=== PATIENT | male | born 1995 | race Caucasian/White ===

== ENCOUNTER 2021-06-07 20:28 | Inpatient (IN) | payer SELFPAY, OTHER ==
[2021-06-07 20:50] VITALS: BMI 21.2
[2021-06-07 21:58] VITALS: BP 118/68; PULSE 82; RESP 16; TEMP 36.6; O2SAT 100
[2021-06-07 22:04] VITALS: BP 116/68; PULSE 80; RESP 16; TEMP 36.6; O2SAT 100
[2021-06-07] MEDS: Senna/Docusate Sodium 1 Tablet 2 TABLET PO (22:23)
[2021-06-07] MEDS: Enoxaparin 30 MG/0.3 ML Syringe SC (22:23)
[2021-06-07] MEDS: oxyCODONE 5 MG Tablet PO (22:24)
[2021-06-07] MEDS: QUEtiapine 25 MG Tablet PO (22:24)
[2021-06-07 22:28] VITALS: PULSE 87; RESP 16; O2SAT 100
--- NOTE | 2021-06-08 04:22 | NURSING ---
Pt impulsive at times and mother, Ashli, staying at bedside. Mother beneficial in alerting staff as pt can be confused at times. Requires help with toileting. Pt resting in bed. VSS.
[2021-06-08 05:57] LABS: Absolute Lymphocyte Count 1.39 X10^3/uL (0.83-4.51); Absolute Neutrophil Count 4.1 X10^3/uL (2.0-7.7); Basophil# 0.03 X10^3/uL; Basophil% 0.5 % (0-1); Eosinophil# 0.21 X10^3/uL; Eosinophils% 3.3 % (0-5); Hematocrit 31.5 % (40-54); Lymphocyte # 1.39 X10^3/ul (0.83-4.51); Lymphocyte % 21.9 % (19-41); Mean Corp Hgb Conc 31.7 g/dL (32-36); Mean Corpuscular Hgb 25.1 pg (27.0-32.0); Mean Corpuscular Volume 79.1 fL (80-94); Mean Platelet Vol. 8.3 fl (6.2-12.0); Monocyte# 0.49 X10^3/uL; Monocyte% 7.7 % (0-10); NRBC Flagged by Analyzer 0 % (0-5); Neutrophil # 4.13 X10^3/uL (2.7-7.7); Neutrophil % 64.9 % (47-70); Platelet Count 723 K/mm3 (150-450); RBC Distribution Width CV 14.8 % (11.6-14.6); RBC Distribution Width SD 41.2 fl (35.1-43.9); Red Blood Count 3.98 M/mm3 (4.6-6.2); White Blood Count 6.4 K/mm3 (4.4-11.0)
[2021-06-08] MEDS: QUEtiapine 25 MG Tablet PO ×2 (06:37→21:33)
[2021-06-08 06:45] LABS: ALB/GLOB Ratio 0.7 RATIO (0.9-2.4); AST(SGOT) 57 U/L (15-37); Alanine Aminotransfer ALT/SGPT 223 U/L (16-61); Albumin, Serum 3.2 g/dL (3.2-5.0); Alkaline Phosphatase 139 U/L (45-117); Anion Gap 6 (5-15); BUN 20 mg/dL (7-18); BUN/Creat Ratio 27.2 RATIO (10-20); Calcium,Total 9.6 mg/dL (8.5-10.1); Chloride 102 mmol/L (98-107); Creatinine, Serum 0.73 mg/dL (0.70-1.30); EST Glomerular Filtration Rate 140 mL/min (>60); Est Glom Filt Rate - Afr Amer 169 mL/min (>60); Estimated Creatinine Clearance 162.56 ml/min; Globulin 4.9 g/dL (2.2-4.2); Glucose 114 mg/dL (74-106); Magnesium 2.2 mg/dL (1.6-2.6); Phosphorus 4.8 mg/dL (2.5-4.9); Potassium 4.5 mmol/L (3.5-5.1); Protein, Total 8.1 g/dL (6.4-8.2); Sodium Level 135 mmol/L (136-145)
[2021-06-08] MEDS: Acetaminophen 325 MG Tablet 975 MG PO (07:11)
[2021-06-08 07:44] VITALS: BP 106/60; PULSE 80; RESP 16; TEMP 36.9; O2SAT 97
[2021-06-08] MEDS: Multivitamins,Therapeutic Tablet 1 TABLET PO (08:49)
[2021-06-08] MEDS: Enoxaparin 30 MG/0.3 ML Syringe SC (08:49)
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
--- NOTE | 2021-06-08 16:07 | NURSING ---
pt impulsive and quick getting OOB on own several times today. Redirects easily. Mother sitting with pt.
[2021-06-08] MEDS: oxyCODONE 5 MG Tablet PO (18:25)
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
[2021-06-08 19:09] VITALS: BP 109/71; PULSE 78; RESP 16; TEMP 36.6; O2SAT 99
[2021-06-08 19:36] VITALS: O2SAT 99
[2021-06-08 20:42] LABS: Ferritin 217 ng/mL (26-388); Iron 44 ug/dL (65-175); Iron Binding Capacity,Total 353 ug/dL (250-450); PERCENT IRON SATURATION 12.5 % (15.0-55.0)
[2021-06-08] MEDS: Menthol/Lanolin/Calamine/Znox 113 GM Tube 1 APPLIC TOPICAL (21:32)
[2021-06-08 22:00] VITALS: PULSE 82; RESP 16; O2SAT 98
[2021-06-09] MEDS: Enoxaparin 40 MG/0.4 ML Syringe SC (06:24)
[2021-06-09 07:23] VITALS: BP 110/69; PULSE 84; RESP 16; TEMP 37.1; O2SAT 97
[2021-06-09] MEDS: Multivitamins,Therapeutic Tablet 1 TABLET PO (09:06)
[2021-06-09] MEDS: QUEtiapine 25 MG Tablet PO ×2 (09:06→19:58)
[2021-06-09] MEDS: Propranolol LA 60 MG Capsule PO (09:06)
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
[2021-06-09] MEDS: oxyCODONE 5 MG Tablet PO (19:53)
[2021-06-09] MEDS: Menthol/Lanolin/Calamine/Znox 113 GM Tube 1 APPLIC TOPICAL (20:08)
[2021-06-09 20:12] VITALS: BP 106/60; PULSE 73; RESP 16; TEMP 36.9; O2SAT 98
[2021-06-09 22:00] VITALS: PULSE 78; RESP 16; O2SAT 97
--- NOTE | 2021-06-09 22:05 | NURSING ---
Pt resting quietly in bed with father at bedside. Pt much more relaxed than previous night and thus far, cooperative this shift.
[2021-06-10] MEDS: Enoxaparin 40 MG/0.4 ML Syringe SC (05:33)
[2021-06-10 07:34] VITALS: BP 110/64; PULSE 76; RESP 16; TEMP 36.7; O2SAT 100
[2021-06-10 07:48] VITALS: O2SAT 100
[2021-06-10] MEDS: QUEtiapine 25 MG Tablet PO ×2 (08:35→21:11)
[2021-06-10] MEDS: Multivitamins,Therapeutic Tablet 1 TABLET PO (08:35)
[2021-06-10] MEDS: Propranolol LA 60 MG Capsule PO (08:35)
[2021-06-10] MEDS: Menthol/Lanolin/Calamine/Znox 113 GM Tube 1 APPLIC TOPICAL ×2 (08:36→21:11)
--- NOTE | 2021-06-10 10:59 | PN_ITS ---
Progress Note Slim was seen on team rounds today. His father Tommy was present in the room and his Karma participated by phone. Afebrile VSS Maintaining appropriate oxygen saturation on RA Oral intake is good Discussed with nursing - no problems that need addressed. He is impulsive but, having the family in the room helps a lot to redirect him and they plan on continuing to have a family member stay with him overnight. Reviewed the PT/OT/ST notes Medication list reviewed. He seems to be more alert today with changing the Propanolol to long acting. Slept well last night. He seemed a little alarmed to have the TEAM come into his room......may be a little overwhelmed. He is redirectable. He denies pain today and tells me he feels OK. Physical Exam Const alert Constitutional Narrative: more alert than at admission. Cooperative. No a ggression. Had some anxiety when the whole TEAM was in the room. He is able to tell me the name of his and son and also his mother and father today. Thought process seems more organized. General Appearance: cooperative, well kempt and well developed Eyes PERRL, EOMs intact bilaterally and normal visual palacios by confrontation Neck full ROM, No nuchal rigidity, no lymphadenopathy and supple Chest Chest: symmetrical chest wall rise Resp normal respiratory effort, no retractions, no use of accessory muscles and clear to auscultation bilaterally Effort and Inspection: able to speak in complete sentences Cardio regular rate, regular rhythm, S1 normal heart sound, S2 normal heart sound, no murmurs, no rub and no gallops GI normal to inspection, nondistended, normoactive bowel sounds, soft to palpation and non-tender Extremity normal capillary refill, no calf tenderness and no pedal edema Peripheral Pulses: Yes pulses 2+ throughout Skin Skin Narrative: incision is intact without erythema or purulent DC General Skin Exam: no breakdown Neuro CN's II-XII intact bilaterally and moves all extremities Neuro Narrative: weaker on the R side than the left but, has generalized weakness. no ataxia. Assessment & Plan Assessment/Plan (1) Microcytic anemia: (2) Iron deficiency: (3) Loose stools: (4) Status post craniectomy: (5) Traumatic brain injury: PLAN: Continue the current medication regimen. Continue therapy Family is agreeable to home therapy when he is ready and can stay safe at home. He has a very supportive family. continue the iron supplement need to determine at some point why he is iron deficient - celiac antibody is pending. Visit Charges Inpatient E&M: 88127 Subs Hosp L2
[2021-06-10] MEDS: Ferrous Sulfate 325 MG Tablet PO (13:04)
--- NOTE | 2021-06-10 15:36 | CASEMGMT ---
Social Work IDT met with patient, father and via conference call for Team meeting. Discussed patient's progress in PT/OT/ST and nursing. [facility] Liaison attended as well. SW to collaborate with [facility] Liaison for ongoing approval for continued stay on RU through Doppelganger and DC needs. Currently, Doppelganger approved through 06/21 and will provide update at that time. Father stated their preference at DC is to use [facility], and he confirmed they do have ST. The goal is for pt to return home with . However, pt currently has a 4 week old son, thus his will be unable to care extensively for pt at home. Parents and other family intend to assist. The goal is for pt to be closer to baseline at time of DC. Will ReTeam. SW to continue to follow for support and DC planning. Celine Dorman ,EMELIA HOLDERW
--- NOTE | 2021-06-10 17:17 | NURSING ---
46 ramón removed from L side of head today per surgeon's office. no steri strips needed- well approximated. pt tolerated procedure well, denies pain or discomfort. call light within reach and PA's on functioning. father at bedside. pt and father deny further needs.
[2021-06-10 19:04] VITALS: BP 101/60; PULSE 75; RESP 18; TEMP 37.1; O2SAT 96
[2021-06-10] MEDS: Acetaminophen 325 MG Tablet 975 MG PO (21:10)
[2021-06-11] MEDS: Enoxaparin 40 MG/0.4 ML Syringe SC (06:40)
[2021-06-11] MEDS: QUEtiapine 25 MG Tablet PO ×2 (07:34→21:59)
[2021-06-11] MEDS: Acetaminophen 325 MG Tablet 975 MG PO (07:34)
[2021-06-11] MEDS: Propranolol LA 60 MG Capsule PO (07:34)
[2021-06-11] MEDS: Multivitamins,Therapeutic Tablet 1 TABLET PO (07:34)
[2021-06-11 07:41] VITALS: BP 106/61; PULSE 59; RESP 18; TEMP 36.9; O2SAT 100
[2021-06-11] MEDS: Menthol/Lanolin/Calamine/Znox 113 GM Tube 1 APPLIC TOPICAL ×2 (11:07→22:02)
[2021-06-11] MEDS: Ferrous Sulfate 325 MG Tablet PO (11:07)
[2021-06-11 16:07] LABS: t-Transglutaminase IgA <2 U/mL (0-3)
[2021-06-11 19:45] VITALS: BP 123/63; PULSE 62; RESP 14; TEMP 36.7; O2SAT 98
[2021-06-12] MEDS: Enoxaparin 40 MG/0.4 ML Syringe SC (06:47)
[2021-06-12] MEDS: QUEtiapine 25 MG Tablet PO ×2 (07:36→20:59)
[2021-06-12] MEDS: Propranolol LA 60 MG Capsule PO (07:36)
[2021-06-12] MEDS: Multivitamins,Therapeutic Tablet 1 TABLET PO (07:36)
[2021-06-12] MEDS: Acetaminophen 325 MG Tablet 975 MG PO ×2 (07:41→20:59)
[2021-06-12 09:58] VITALS: BP 146/70; PULSE 80; RESP 18; TEMP 36.6; O2SAT 96
[2021-06-12] MEDS: Ferrous Sulfate 325 MG Tablet PO (11:52)
[2021-06-12 19:33] VITALS: BP 105/55; PULSE 73; RESP 18; TEMP 37.2; O2SAT 98
[2021-06-13] MEDS: Enoxaparin 40 MG/0.4 ML Syringe SC (06:59)
[2021-06-13 07:58] VITALS: BP 106/56; PULSE 64; RESP 16; TEMP 36.9; O2SAT 98
[2021-06-13] MEDS: QUEtiapine 25 MG Tablet PO ×2 (08:04→21:15)
[2021-06-13] MEDS: Multivitamins,Therapeutic Tablet 1 TABLET PO (08:04)
[2021-06-13] MEDS: Propranolol LA 60 MG Capsule PO (08:05)
[2021-06-13] MEDS: Ferrous Sulfate 325 MG Tablet PO (11:49)
[2021-06-13 19:46] VITALS: BP 114/62; PULSE 58; RESP 14; TEMP 36.8
[2021-06-13] MEDS: Acetaminophen 325 MG Tablet 975 MG PO (21:15)
[2021-06-13] MEDS: Menthol/Lanolin/Calamine/Znox 113 GM Tube 1 APPLIC TOPICAL (21:17)
[2021-06-14] MEDS: Enoxaparin 40 MG/0.4 ML Syringe SC (06:08)
[2021-06-14 08:23] VITALS: BP 102/55; PULSE 65; RESP 16; TEMP 36.9; O2SAT 97
[2021-06-14] MEDS: Propranolol LA 60 MG Capsule PO (08:43)
[2021-06-14] MEDS: QUEtiapine 25 MG Tablet PO ×2 (08:43→20:23)
[2021-06-14] MEDS: Multivitamins,Therapeutic Tablet 1 TABLET PO (08:43)
[2021-06-14] MEDS: Ferrous Sulfate 325 MG Tablet PO (12:06)
--- NOTE | 2021-06-14 12:24 | PCM.PROGNOTE ---
Subjective Subjective Afebrile VSS Maintaining appropriate oxygen saturation on RA Oral intake is OK, I encouraged him to increase his fluid intake to help with the CHOI and the lightheadedness. Discussed with nursing - no problems that need addressed Reviewed the PT/OT/ST notes Medication list reviewed. Stool is negative for fecal leukocytes. Stool is Hemoccult positive. He is not currently having diarrhea. He does have frequent loose stools at home. He denies CHOI and also denies lightheadedness at this time. No calf pain and no nausea or abdominal pain. Objective Data Objective Data Vital Signs: Vital Signs Temp Pulse Resp BP Pulse Ox 98.4 F 65 16 102/55 L 97 06/14/21 08:23 06/14/21 08:23 06/14/21 08:23 06/14/21 08:23 06/14/21 08:23 Oxygen Delivery Method Room Air Weight: 141 lb 12.116 oz Body Mass Index (BMI) 21.2 Intake & Output: Intake and Output for Last 24 Hours 06/12/21 06/13/21 06/14/21 23:59 23:59 23:59 Intake Total 480 / 480 300 / 300 Balance 480 / 480 300 / 300 Lab / Micro Data Result Diagrams: 06/15/21 05:26 06/15/21 05:26 Micro: Microbiology 06/10/21 19:40 Stool Stool Lactoferrin - Final 06/10/21 19:40 Stool Stool Occult Blood (KALIA) - Final Occult Blood Positive 06/09/21 01:15 Stool C. difficile DNA Amplification - Final 06/09/21 01:15 Stool Enteric Bacteriology - Final Physical Exam Const alert, oriented x3 and no apparent distress General Appearance: cooperative and well developed Eyes EOMs intact bilaterally, conjunctivae normal and no scleral icterus Resp normal air movement and clear to auscultation bilaterally Effort and Inspection: able to speak in complete sentences Cardio regular rate, regular rhythm, S1 normal heart sound, S2 normal heart sound, no murmurs, no rub and no gallops GI normal to inspection, nondistended, normoactive bowel sounds, soft to palpation and non-tender Extremity no calf tenderness and no pedal edema Skin Wound Narrative: The incision remains intact with no erythema, purulent discharge or dehiscence. Neuro moves all extremities Neuro Narrative: less coordinated on the R side. More steady with ambulation. He is answering questions appropriately. No tremors. No ataxia. Assessment & Plan Assessment/Plan (1) Iron deficiency: (2) Status post craniectomy: (3) Thrombocytosis: (4) Skull fractures: (5) Subarachnoid hemorrhage: (6) Subdural hematoma: (7) Traumatic brain injury: PLAN: 1. check a repeat CMP and an CBC in the AM. 2. Would refer to GI post DC to be evaluated for chronic heme + stool and chronic loose stools with iron deficiency. 3. I explained to Slim once again that the bone flap will likely not be replaced for another 3 months and until then he must wear the helmet at all times, unless he is in bed. I also explained that he will not be allowed to operate heavy equipment or saws due to poor safety awareness and also due to poor coordination of the R side. 4. We talked about why it is important to continue therapy and how statistically the recovery within the first 6 months after the injury is the most rapid and is a good predictor of how functional he will be going forward. Charges/Coding Visit Charges Inpatient E&M: 59422 Subs Hosp L2
[2021-06-14 19:29] VITALS: BP 112/78; PULSE 66; RESP 16; TEMP 36.7; O2SAT 99
[2021-06-14] MEDS: Menthol/Lanolin/Calamine/Znox 113 GM Tube 1 APPLIC TOPICAL (20:28)
[2021-06-14 22:00] VITALS: PULSE 73; RESP 16
[2021-06-15 05:33] LABS: Hematocrit 33.7 % (40-54); Hemoglobin 10.7 g/dL (13.0-16.5); Mean Corp Hgb Conc 31.8 g/dL (32-36); Mean Corpuscular Volume 81.8 fL (80-94); Mean Platelet Vol. 8.5 fl (6.2-12.0); Platelet Count 380 K/mm3 (150-450); RBC Distribution Width CV 15.2 % (11.6-14.6); RBC Distribution Width SD 44.9 fl (35.1-43.9); Red Blood Count 4.12 M/mm3 (4.6-6.2); White Blood Count 3.5 K/mm3 (4.4-11.0)
[2021-06-15] MEDS: Enoxaparin 40 MG/0.4 ML Syringe SC (05:47)
[2021-06-15 05:59] LABS: ALB/GLOB Ratio 0.9 RATIO (0.9-2.4); AST(SGOT) 35 U/L (15-37); Alanine Aminotransfer ALT/SGPT 92 U/L (16-61); Albumin, Serum 3.5 g/dL (3.2-5.0); Alkaline Phosphatase 97 U/L (45-117); Anion Gap 2 (5-15); BUN 23 mg/dL (7-18); BUN/Creat Ratio 29.8 RATIO (10-20); Calcium,Total 9.3 mg/dL (8.5-10.1); Chloride 102 mmol/L (98-107); Creatinine, Serum 0.77 mg/dL (0.70-1.30); EST Glomerular Filtration Rate 132 mL/min (>60); Est Glom Filt Rate - Afr Amer 160 mL/min (>60); Globulin 4.1 g/dL (2.2-4.2); Glucose 101 mg/dL (74-106); Potassium 4.7 mmol/L (3.5-5.1); Protein, Total 7.6 g/dL (6.4-8.2); Sodium Level 137 mmol/L (136-145)
[2021-06-15 07:47] VITALS: BP 106/63; PULSE 66; RESP 16; TEMP 36.6; O2SAT 98
[2021-06-15] MEDS: Propranolol LA 60 MG Capsule PO (08:56)
[2021-06-15] MEDS: Multivitamins,Therapeutic Tablet 1 TABLET PO (08:56)
[2021-06-15] MEDS: Menthol/Lanolin/Calamine/Znox 113 GM Tube 1 APPLIC TOPICAL ×2 (08:57→20:25)
[2021-06-15] MEDS: QUEtiapine 25 MG Tablet PO ×2 (08:57→20:24)
[2021-06-15] MEDS: Ferrous Sulfate 325 MG Tablet PO (12:04)
--- NOTE | 2021-06-15 14:54 | PCM.PN.BLA ---
Progress Note Afebrile VSS Maintaining appropriate oxygen saturation on RA Oral intake is good.......I instructed him to try and increase fluid intake to help with CHOI and lightheadedness. Discussed with nursing - no problems that need addressed Reviewed the PT/OT/ST notes - he was able to write out checks today with OT and made no mistakes. He is ambulating without the walker now. Medication list reviewed. Has not needed any Oxycodone since 06/09. He had a CHOI and some lightheadedness when they came to draw his blood this AM and I think he had a little vasovagal spell. Sx resolved quickly. He denies nausea, CHOI, lightheadedness, pain at the present time. He is very alert and he is oriented to person, place, month and year. He is making appropriate conversation. He wants to go home tonight. I explained that I do not think that is in his best interest at this time and I feel he would benefit from additional therapy. Lungs are CTA with excellent air exchange HRRR Abd is soft, NT and ND with normal BS's No peripheral edema and no calf tenderness. Impressions 1. traumatic brain injury 2. cognitive dysfunction. 3. S/P craniectomy 4. iron deficiency - etiology undetermined Continue the iron supplement 5. Continue therapy Visit Charges Inpatient E&M: 13604 Subs Hosp L2
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
[2021-06-15 19:08] VITALS: BP 101/56; PULSE 67; RESP 16; TEMP 36.6; O2SAT 98
[2021-06-15 22:00] VITALS: PULSE 68; RESP 16
[2021-06-16] MEDS: Enoxaparin 40 MG/0.4 ML Syringe SC (06:29)
[2021-06-16 07:03] VITALS: BP 103/57; PULSE 75; RESP 16; TEMP 36.8; O2SAT 98
[2021-06-16] MEDS: Multivitamins,Therapeutic Tablet 1 TABLET PO (07:56)
[2021-06-16] MEDS: Propranolol LA 60 MG Capsule PO (07:57)
[2021-06-16] MEDS: QUEtiapine 25 MG Tablet PO ×2 (07:57→19:53)
[2021-06-16] MEDS: Ferrous Sulfate 325 MG Tablet PO (11:50)
[2021-06-16 19:40] VITALS: BP 111/55; PULSE 66; RESP 16; TEMP 36.8; O2SAT 100
[2021-06-17] MEDS: Enoxaparin 40 MG/0.4 ML Syringe SC (06:59)
[2021-06-17 07:45] VITALS: BP 109/63; PULSE 60; RESP 18; TEMP 37.1; O2SAT 97
[2021-06-17] MEDS: QUEtiapine 25 MG Tablet PO ×2 (08:02→21:15)
[2021-06-17] MEDS: Propranolol LA 60 MG Capsule PO (08:02)
[2021-06-17] MEDS: Multivitamins,Therapeutic Tablet 1 TABLET PO (08:02)
--- NOTE | 2021-06-17 08:59 | NURSING ---
pt found standing in [address] talking on the phone while his father (his sitter) was sleeping. Pt was assisted back to his bed and pressure alarm was turned back on. pt continues to turn alarm off and self transfer after several conversations with him and his family that staff has to be present for all transfers. Will continue to educate pt and family and monitor pt.
[2021-06-17] MEDS: Ferrous Sulfate 325 MG Tablet PO (11:58)
--- NOTE | 2021-06-17 14:13 | CASEMGMT ---
Social Work IDT met with patient, TOBIN and via conference all for Team meeting. Discussed patient's progress in PT/OT/ST and nursing. Pt progressing well. Pt requesting to DC home. IDT agreeable to tomorrow, 06/18. Family and pt agreeable. Confirmed [facility] PT/OT/ST order. No DME needs. Referral made to [facility]. IDT stressed to pt and family, at home, pt must wear helmet at all times unless in bed. Pt and family expressed understanding. Plan: DC home with family support 06/18, [facility] PT/OT/ST EMELIA PepperW
[2021-06-17 19:19] VITALS: BP 108/61; PULSE 62; RESP 14; TEMP 36.8; O2SAT 99
[2021-06-18] MEDS: Enoxaparin 40 MG/0.4 ML Syringe SC (05:59)
[2021-06-18 07:32] VITALS: BP 107/61; PULSE 68; RESP 16; TEMP 36.9; O2SAT 97
[2021-06-18] MEDS: Multivitamins,Therapeutic Tablet 1 TABLET PO (08:08)
[2021-06-18] MEDS: QUEtiapine 25 MG Tablet PO (08:08)
[2021-06-18] MEDS: Propranolol LA 60 MG Capsule PO (08:08)
[2021-06-18] MEDS: Menthol/Lanolin/Calamine/Znox 113 GM Tube 1 APPLIC TOPICAL (08:09)
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
--- NOTE | 2021-06-18 09:55 | DCINST_ITS ---
Discharge Instructions Diet Discharge Diet: No restrictions Activity Discharge Activity: May Not Drive, May Shower, May Take a Tub Bath and - (No AD needed) Weight Bearing Status: Full weight bearing Dressing / Incision Call your doctor if your incision/area has: Continuous Slow Oozing, Sudden Increased Bleeding, Increased Pain/ Swelling, Increased Redness, Foul Smelling Discharge, Swelling at the incision site and - (You must check the incision site EVERY DAY and note any changes such as redness, discharge, opening of the incision, swelling, bleeding. If any of these things happen or he has a fever call the doctor for advice on what to do. ) Call your doctor if you observe: Fever of 101 or Higher, Shortness of breath, Swelling in the ankles, Chest pain, Increased palpitations (irregular heartbeat), Calf discomfort and Uncontrolled pain Suture Line Care: Avoid Pulling/Pushing and Avoid Pinching/Bending Change Dressing in: do not change dressing (No dressing is needed unless the helmet is rubbing the incision and then you can cover with a dry dressing while he is wearing the helmet. ) Cleanse incision/area with: Soap & Water Additional Dressing/Incision Instructions:: Slim MUST wear the helmet ANYTIME he is out of bed to protect the brain from further damage since a large piece of bone has been removed and will likely not be replaced for another 3 months or so. Follow Up Care Please Follow Up With: Dr. Johnson When: 06/21/21 Test Results: Test results from this visit will be discussed in further detail at your follow-up appointment, if applicable. Pending Tests Upon Discharge: none Discharge Plan Admission Admit Date/Time: 06/07/21 20:28 Primary Reason for Your Visit: Debility due to TBI Attending Provider: Ania Nash Primary Care Provider: Care Physician,No Primary Instructions Patient Instructions: What Is Traumatic Brain Injury?, Anxiety and Traumatic Brain Injury, Preventing Traumatic Brain Injury, Understanding Traumatic Brain Injury, Trauma Head Additional Instructions / Restrictions: 1. You are at great risk for another brain injury if you are not wearing the helmet when you are out of bed. The brain is fragile and its the only 1 you get. There is no bone overlying the brain on the Left side of your head.......the brain is right under the skin and the skin does not provide much protection. You have done well recovering from this injury but, there are still problems managing more complicated tasks, being aware of what is safe and what is not, overcoming distractions while you are trying to work out a problem.........some of this may be present for the rest of your life. Getting therapy is Very important! Wearing the Helmet until the bone is replaced is very important. Not doing your chores until the bone is replaced is very important. No work until the bone is replaced. Take this seriously Slim. Another brain injury on top[ of this one could be devastating and you could . 2. It is important to look at the incision every day. If there is redness around the incision, discharge from the incision, increased swelling around the incision, increased pain around the incision OR if the incision is separting you MUST call your doctor for advice OR come to the Emergency Room. If you have a fever over 100 degrees, any shaking chills or a bad headache call the doctor. These are all signs of infection and it must be treated as soon as possible. 3. Do not do anything that may result in a blow to the head!. This includes working with the horses, cutting down trees, playing sports, working with ma [employer]. Protect your brain. 4. Your blood count is low and you are iron deficient. You have blood in your bowel movements and you have frequent loose stools. You may have a problem with the intestine that is causing a chronic blood loss. We have made you an appt with Dr. Welch who is a specialist in problems that have to do with the bowel. you will be taking a iron supplement once a day to help build the iron back up in your body. Take the iron supplement with food because it helps to improve absorption from the gastrointestinal tract. 5. If you or your family have any questions after you leve rehab please do not hesitate to contact me at: [phone] (nursing station) [phone] ( my office) [phone] (cell phone). Discharge Orders/Prescriptions Prescriptions: New multivitamin Tablet 1 tab PO BREAKFAST Qty: 0 RF: 0 quetiapine 25 mg Tablet 25 mg PO BID Qty: 60 RF: 0 acetaminophen [Tylenol] 325 mg Tablet 975 mg PO Q6H PRN PRN (Reason: Pain Score 1-10) Qty: 0 RF: 0 propranolol 60 mg Capsule,Extended Release 24 Hr 60 mg PO DAILY Qty: 30 RF: 0 ferrous sulfate [FeroSul] 325 mg (65 mg iron) Tablet 325 mg PO 1200 Qty: 30 RF: 0 acidophilus-pectin, citrus 25 million cell -100 mg Tablet 1 tab PO BID Qty: 60 RF: 0 Referrals / Follow Up: Dr Zuniga [Other] - See Referral Note (Spine Surgeon: follow-up with physician as needed ) Dr Ewing [Other] - 06/22/21 1:30 pm (Plastic Surgeon for Nasal Bone $150 do at time of visit, sky, cashiers check or credit card accepted. make cashiers check out to [employer]) Dr Moreno [Other] - 06/21/21 11:30 am (follow-up appointment together with Dr Verduzco/Dr Moreno ) Friend,DO Jorge [STAFF PHYSICIAN] - 08/18/21 1:45 pm (Office will send paper work to be filled out and brought to appointment) Care Physician,No Primary [Primary Care Provider] - (pt to make appt) Disposition Disposition (needs filled in before D/C Order can be placed): Home Health Service
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
[2021-06-18] MEDS: Ferrous Sulfate 325 MG Tablet PO (12:08)
--- NOTE | 2021-06-18 13:37 | NURSING ---
discharge instructions given to pt, , pt's mother and pt's brother. pt and family deny questions or concerns. pt discharged home via car transport.
== END 2021-06-18 13:39 | disposition home health service (06) | DRG 950 ==
PROVIDERS: Admitting Provider Internal Medicine; Visit Provider Internal Medicine
DX: S06.5X9D Traumatic subdural hemorrhage with loss of consciousness of unspecified duration, subsequent encounter (principal); D50.9 Iron deficiency anemia, unspecified; K52.9 Noninfective gastroenteritis and colitis, unspecified; V80 Animal-rider or occupant of animal-drawn vehicle injured in transport accident; R19.5 Other fecal abnormalities; S02.119D Unspecified fracture of occiput, subsequent encounter for fracture with routine healing; R79.89 Other specified abnormal findings of blood chemistry; S06.6X9D Traumatic subarachnoid hemorrhage with loss of consciousness of unspecified duration, subsequent encounter; S06.339D Contusion and laceration of cerebrum, unspecified, with loss of consciousness of unspecified duration, subsequent encounter; D75.839 Thrombocytosis, unspecified
CPT/HCPCS: 36415; 80053; 82274; 82728; 83516; 83540; 83550; 83630; 83735; 84100; 85025; 85027; 87493; 87506; 92507; 92523; 92526; 96125; 97110; 97112; 97116; 97129; 97130; 97162; 97166; 97530; 97535; 99251; G0463